=== PATIENT | male | born 1945 | race Caucasian/White ===

== ENCOUNTER 2025-08-25 21:35 | Emergency (ER) | payer MEDICARE, SELFPAY ==
[2025-08-25 22:04] VITALS: BP 148/92; PULSE 90; RESP 18; TEMP 36.8; O2SAT 98; BMI 34.5
--- NOTE | 2025-08-25 23:07 | ED.LOWEXIN ---
HPI - Extremity Injury (Lower) General Date Seen: 08/25/25 Chief Complaint: Extremity Pain/Injury, Lower Stated Complaint: leg cramps Time Seen by Provider: 08/25/25 22:49 Source: patient, family, RN notes reviewed and old records reviewed Mode of arrival: ambulatory Limitations: no limitations History of Present Illness HPI Narrative: This very nice gentleman presents here with his , ambulatory to the emergency room, after he was attended by the ambulance. At home he developed bilateral leg cramps in his upper legs bilaterally 1st the right than the left. There so bad that he had to lay down on the floor they lasted for approximately 5-10 minutes and then dissipated. He has had red cramps before but never this bad he thinks these were brought on by driving back from [facility] where they live to his son's place. Denies any significant swelling in his legs, no history of fevers chills sweats, no recent new medications, falls or injury. He is now back to normal with absolutely no pain. But just does not want to go through this again if he can avoid it. Related Data Home Medications ?Medication ?Instructions ?Recorded ?Confirmed amlodipine-valsartan 08/25/25 atorvastatin 08/25/25 Allergies Allergy/AdvReac Type Severity Reaction Status Date / Time diazepam Allergy Verified 08/25/25 22:11 Review of Systems Status of ROS: Reports: 10 or more systems reviewed and unremarkable except as noted in History and below [facility] Social History Do you use any of these nicotine containing products: None How often do you have a drink containing alcohol: never AUDIT-C Alcohol total score: 0 Non-prescribed substance use: denies use Exam Narrative: Exam Narrative: On examination he is in no distress in the stabilization room 2. Examination of his legs bilaterally show no evidence of any swelling edema he has normal DP and posterior tibial pulses he has normal movement of his legs. There is no red evidence of redness or rashes. Sensation is normal his entire legs and he is able to walk normally. I viewed him walking to the bathroom. I discussed with him that I think this thing to rule out would be electrolyte abnormality or low magnesium level. We will do some labs I will give him some fluids. Const: Vital Signs, click to edit/add: Vital Signs - 24 hr 08/25/25 22:04 08/25/25 23:45 Temperature 98.3 F Pulse Rate 73 Pulse Rate [Pulse Oximeter] 90 Respiratory Rate 18 16 Blood Pressure 154/93 H Blood Pressure [Ri ght Upper Arm] 148/92 H Pulse Oximetry 98 95 Oxygen Delivery Me thod Room Air Room Air Course Course ED Course: Discussed with the patient, mildly low sodium, also low fluid status . No recurrence of his leg cramps, I think we can send him home with this point. He was comfortable this plan. Vital Signs Vital signs: Initial Vital Signs Temperature 98.3 F 08/25/25 22:04 Temperature Source Temporal Artery Scan 08/25/25 22:04 Pulse Rate 90 08/25/25 22:04 Respiratory Rate 18 08/25/25 22:04 Blood Pressure 148/92 H 08/25/25 22:04 Blood Pressure Mean 110 H 08/25/25 22:04 Blood Pressure Position Sitting 08/25/25 22:04 Pulse Oximetry 98 08/25/25 22:04 Oxygen Delivery Method Room Air 08/25/25 22:04 Vital Signs Temperature 98.3 F 08/25/25 22:04 Pulse Rate 90 08/25/25 22:04 Respiratory Rate 18 08/25/25 22:04 Blood Pressure 148/92 H 08/25/25 22:04 Pulse Oximetry 98 08/25/25 22:04 Oxygen Delivery Method Room Air 08/25/25 22:04 Temperature 98.3 F 08/25/25 22:04 Pulse Rate 73 08/25/25 23:45 Respiratory Rate 16 08/25/25 23:45 Blood Pressure 154/93 H 08/25/25 23:45 Pulse Oximetry 95 08/25/25 23:45 Oxygen Delivery Method Room Air 08/25/25 23:45 Medications Administered Medications: Discontinued Medications Generic Name Dose Route Start Last Admin Trade Name Freq PRN Reason Stop Dose Admin Sodium Chloride 1,000 mls @ 1,000 mls/hr 08/25/25 23:00 08/26/25 00:31 0.9 % Sodium Chloride 1000 Ml IV 08/25/25 23:59 Infused .Q1H RAMIREZ Infusion MDM - Extremity Injury (Lower) Medical Records Attestation: I reviewed the patient's medical records. Lab Data Attestation: I reviewed the patient's lab results. Lab results narrative: Mildly low sodium at 133 Labs: Lab Results 08/25/25 Range/Units 23:07 Sodium 133 L (135-149) mmol/L Potassium 5.1 (3.6-5.1) mmol/L Chloride 98 (96-114) mmol/L Carbon Dioxide 28 (20-32) mmol/L Anion Gap 7 (7-15) mEq/L BUN 21 (7-30) mg/dL Creatinine 1.0 (0.5-1.5) mg/dL Estimated Creat Clear 53.25 Estimated GFR 75 ml/min Glucose 106 (60-115) mg/dL Calcium 8.9 (8.4-10.6) mg/dL Magnesium 1.9 (1.5-2.6) mg/dL Discharge Plan Discharge Clinical Impression: Bilateral leg cramps, Acute hyponatremia Patient Disposition: Home w/ Parent or Adult Condition: Stable Instructions: Liquids and Hydration for Athletes (ED), Hyponatremia (ED), Leg Cramps (ED), Muscle Spasm (ED), Muscle Cramp (ED) Additional Instructions: Home rest, use of salt, lots of fluids, and rest I do believe your leg cramps came about from her slightly low potassium along with here after fluid status, you can use the magnesium creams although I really do not know if this is going to make any difference at all. It is more the massage that helped. Follow-up with primary care if ongoing signs and symptoms but reasonable let her go home tonight. Activity Level: No Restrictions Discharge Diet: Regular Prescriptions: No Action amlodipine-valsartan atorvastatin Follow Up/Referrals: Provider,Not a Local [Primary Care Provider, Family Practice] Stand Alone Forms: MyHealth Info Instructions
[2025-08-25 23:34] LABS: Chloride* 98 mmol/L (96-114); Potassium* 5.1 mmol/L (3.6-5.1); Sodium* 133 mmol/L (135-149)
[2025-08-25 23:37] LABS: Anion Gap 7 mEq/L (7-15); Blood Urea Nitrogen* 21 mg/dL (7-30); Calcium* 8.9 mg/dL (8.4-10.6); Carbon Dioxide* 28 mmol/L (20-32); Creatinine* 1.0 mg/dL (0.5-1.5); Est. Creatinine Clearance* 53.25; Estimated Glomerular Filt Rate 75 ml/min; Glucose* 106 mg/dL (60-115)
[2025-08-25 23:45] VITALS: BP 154/93; PULSE 73; RESP 16; O2SAT 95
== END 2025-08-26 00:42 | disposition home or self-care (01) ==
PROVIDERS: Emergency Provider Family Medicine
DX: R25.2 Cramp and spasm (principal); E87.1 Hypo-osmolality and hyponatremia
CPT/HCPCS: 36415; 80048; 83735; 96360; 99283; 99284; J7030